=== PATIENT | female | born 1995 | race Caucasian/White ===

== ENCOUNTER 2021-10-14 08:00 | Outpatient (CLI) | payer OTHER | END 2021-10-14 23:59 | disposition home or self-care (01) | LOC: LAB.N 08:00 | PROVIDERS: ATTEND Registered Nurse | DX: R35.0 Frequency of micturition (principal) | CPT/HCPCS: 87077; 87086; 87181 ==

== ENCOUNTER 2023-10-22 09:27 | Outpatient (CLI) | payer OTHER ==
--- NOTE | 2023-10-23 09:02 | Ultrasound Report ---
LIMITED ULTRASOUND OF LEFT BREAST: 10/22/2023 CLINICAL: Nipple discharge, left breast, not bloody. No prior exams were available for comparison. Color flow and real-time ultrasound of the left breast retroareolar were performed. Alejandro scale imag es of the real-time examination were reviewed. No significant abnormalities were seen sonographically in the left breast. IMPRESSION: NEGATIVE There is no sonographic evidence of malignancy. There is no abnormality seen in the left breast to correspond with the area of clinical concern and n on-bloody discharge from the nipple which likely represent physiological discharge, however, recomme nd clinical follow up for persistent or worsening symptoms, or development of any clinically suspicio us findings. Findings and recommendations were conveyed to the patient during today's evaluation. This exam was interpreted at Station ID: [id number]. Electronically Signed By: Kyrie Myles M.D. aty/:10/22/2023 10:20:32 Ultrasound BI-RADS: 1 Negative BI-RADS CATEGORY: (1) - 1 Unspecified - other recall n/a LATERALITY: (B)
== END 2023-10-22 09:28 | disposition home or self-care (01) ==
LOC: DI 09:27
PROVIDERS: ATTEND Physician Assistant
DX: N64.52 Nipple discharge (principal)